=== PATIENT | female | born 1935 | race Caucasian/White ===

== ENCOUNTER 2021-07-22 00:01 | Inpatient (IN) | payer MEDICARE, MEDICAID ==
[~2021-07-22] VITALS: Ht 160 cm; Wt 46.7 kg
[~2021-07-22 00:01] MED LIST: DIXL10 PO; FLUO20CA33 PO; OMEG1CAP17 PO; VERA240C2 PO
[2021-07-22] MEDS ORDERED: ACETAMINOPHEN 325MG TABLET PO STA (00:49)
[2021-07-22] MEDS ORDERED: TETANUS, DIPHTHERIA, PERTUSSIS VAC/PF 0.5ML (>10YR OLD) IM ONE (01:00)
[2021-07-22] MEDS ORDERED: BACITRACIN ZINC OINT UDPKT TOP ONE (01:00)
[2021-07-22] MEDS ORDERED: SODIUM CHLORIDE 0.9% 1,000 ML IV ONE (01:00)
[2021-07-22] MEDS ORDERED: LIDOCAINE HCL/EPINEPHRINE 1%-EPI 1:100,000 20 ML VIAL INFIL ONE (01:00)
[2021-07-22] MEDS ORDERED: LIDOCAINE HCL/EPINEPHRINE 1%-EPI 1:100,000 10 ML VIAL IJ SCH (01:15)
[2021-07-22 01:33] LABS: HEMATOCRIT. 35.7 % (36.0-48.0); HEMOGLOBIN. 12.2 g/dL (12.0-16.0); MEAN CORPUSCULAR HEMOGLOBIN 34.3 pg (28.0-32.0); MEAN PLATELET VOLUME 7.4 fl (7.4-10.4); PLATELET 239 x1000/uL (130-400); RED BLOOD CELL COUNT 3.57 mill/uL (4.2-5.4); RED CELL DISTRIBUTION WIDTH 15.2 % (11.6-14.6)
[2021-07-22 01:42] LABS: CHLORIDE 111 mEq/L (98-107)
[2021-07-22 03:04] LABS: PARTIAL THROMBOPLASTIN TIME 26.9 sec (23.4-31.0); PROTHROMBIN TIME 10.5 sec (9.6-11.0)
[2021-07-22] MEDS ORDERED: ASPIRIN 81MG TABLET PO ONE (04:30)
[2021-07-22 07:48] LABS: PLATELET ESTIMATE NORMAL
[2021-07-22] MEDS ORDERED: ONDANSETRON HCL 4MG/2ML INJ IV PRN (09:15)
[2021-07-22 11:00] VITALS: BP 112/58
[2021-07-22 12:00] VITALS: BP 112/58
[2021-07-22 16:05] VITALS: BP_SYST 164; BP_SYST 166; BP_DIAS 69; BP_DIAS 70
[2021-07-22] MEDS: CLONIDINE 0.1MG TABLET PO PRN (17:44)
[2021-07-22 20:00] VITALS: BP 137/60
[2021-07-22] MEDS ORDERED: INSULIN LISPRO 100 UNITS/ML SUBCUT NR (21:00)
[2021-07-23] VITALS: BP 104/47
[2021-07-23 04:00] VITALS: BP 131/44
[2021-07-23 07:51] LABS: CLARITY URINE CLOUDY (CLEAR); COLOR URINE YELLOW (YELLOW); KETONES URINE TRACE (NEGATIVE); LEUKOCYTE ESTERASE URINE 1+ (NEGATIVE); NITRITE URINE POSITIVE (NEGATIVE); OCCULT BLOOD URINE 1+ (NEGATIVE); PH URINE 5.5 (4.5-8.0); PROTEIN URINE TRACE (NEGATIVE); SPECIFIC GRAVITY URINE 1.025 (1.005-1.030)
[2021-07-23 08:00] VITALS: BP 120/62
[2021-07-23] MEDS: AMLODIPINE 10MG TABLET PO SCH (09:22)
[2021-07-23] MEDS ORDERED: CEFTRIAXONE 1 G PREMIX 50 ML IV SCH (11:30)
[2021-07-23 12:00] VITALS: BP 118/79
[2021-07-23 16:00] VITALS: BP 165/70
[2021-07-23] MEDS: CEFTRIAXONE 1,000 MG in DEXTROSE 5% WATER 50 ML IV SCH (16:33)
[2021-07-23] MEDS: ACETAMINOPHEN 325MG TABLET PO PRN (16:36)
[2021-07-23] MEDS: CLONIDINE 0.1MG TABLET PO PRN (16:41)
[2021-07-23 20:00] VITALS: BP 146/106
[2021-07-24] VITALS: BP 175/75
[2021-07-24 04:00] VITALS: BP 176/82
[2021-07-24] MEDS: CLONIDINE 0.1MG TABLET PO PRN (05:44)
[2021-07-24 07:54] LABS: FOLIC ACID (FOLATE) SERUM 9.6 ng/mL (>5.38)
[2021-07-24 08:00] VITALS: BP 112/48
[2021-07-24] MEDS: HYDRALAZINE HCL 25MG TABLET PO SCH ×2 (09:30→21:00)
[2021-07-24] MEDS: ACETAMINOPHEN 325MG TABLET PO PRN ×2 (10:15→22:19)
[2021-07-24] MEDS: AMLODIPINE 10MG TABLET PO SCH (10:16)
[2021-07-24 12:00] VITALS: BP 131/56
[2021-07-24] MEDS: CEFTRIAXONE 1,000 MG in DEXTROSE 5% WATER 50 ML IV SCH (14:34)
[2021-07-24] MEDS: CYANOCOBALAMIN 1000MCG/ML VIAL IM SCH (14:56)
[2021-07-24 16:00] VITALS: BP 94/36
[2021-07-24 20:40] VITALS: BP 112/49
[2021-07-25 00:04] VITALS: BP 119/50
[2021-07-25 04:00] VITALS: BP 132/52
[2021-07-25 07:32] LABS: CHLORIDE 110 mEq/L (98-107)
[2021-07-25 08:00] VITALS: BP 129/66
[2021-07-25] MEDS: CYANOCOBALAMIN 1000MCG/ML VIAL IM SCH (09:55)
[2021-07-25] MEDS: HYDRALAZINE HCL 25MG TABLET PO SCH (09:55)
[2021-07-25] MEDS: AMLODIPINE 10MG TABLET PO SCH (09:56)
[2021-07-25] MEDS: ACETAMINOPHEN 325MG TABLET PO PRN ×2 (10:03→17:29)
[2021-07-25 12:00] VITALS: BP 138/78
[2021-07-25] MEDS ORDERED: LIDOCAINE HCL 2% JELLY 5ML TOP SCH (13:00)
[2021-07-25] MEDS: CEFTRIAXONE 1,000 MG in DEXTROSE 5% WATER 50 ML IV SCH (14:02)
[2021-07-25 16:00] VITALS: BP 131/63
[2021-07-25 20:00] VITALS: BP 150/77
[2021-07-26] VITALS: BP_SYST 142; BP_SYST 146; BP_DIAS 67; BP_DIAS 75
[2021-07-26] MEDS: HYDRALAZINE HCL 25MG TABLET PO SCH ×3 (00:12→20:48)
[2021-07-26 04:00] VITALS: BP 143/83
[2021-07-26 08:00] VITALS: BP 137/54
[2021-07-26] MEDS: CYANOCOBALAMIN 1000MCG/ML VIAL IM SCH (09:07)
[2021-07-26] MEDS: AMLODIPINE 10MG TABLET PO SCH (09:07)
[2021-07-26 11:45] VITALS: BP 120/54
[2021-07-26] MEDS: CEFTRIAXONE 1,000 MG in DEXTROSE 5% WATER 50 ML IV SCH (12:35)
[2021-07-26] MEDS: ACETAMINOPHEN 325MG TABLET PO PRN ×2 (13:44→19:16)
[2021-07-26 15:47] VITALS: BP 106/49
[2021-07-27 08:00] VITALS: BP 148/62
[2021-07-27] MEDS: CYANOCOBALAMIN 1000MCG/ML VIAL IM SCH (09:24)
[2021-07-27] MEDS: HYDRALAZINE HCL 25MG TABLET PO SCH (09:24)
[2021-07-27] MEDS: AMLODIPINE 10MG TABLET PO SCH (09:25)
[2021-07-27 12:00] VITALS: BP 138/45
[2021-07-27 16:00] VITALS: BP 130/59
[2021-07-27 16:15] VITALS: BP 130/59
[2021-07-30 14:12] LABS: 25-HYDROXY VITAMIN D3 22 ng/mL (.)
[2021-08-06] MEDS ORDERED: CYANOCOBALAMIN 1000MCG/ML VIAL IM SCH (09:00)
== END 2021-07-27 18:40 | disposition hospice, home (50) | DRG 40 ==
LOC: ER 00:11 → EDUNIT# 00:11 → MICUSO 04:26 → 7EST 10:52
PROVIDERS: ADMIT Internal Medicine; ATTEND Internal Medicine
PROC: 0HQ0XZZ Repair Scalp Skin, External Approach (ICD-10-PCS; principal; 2021-07-22)
PROC: 0JB70ZZ Excision of Back Subcutaneous Tissue and Fascia, Open Approach (ICD-10-PCS; 2021-07-26)
DX: G90.8 Other disorders of autonomic nervous system (principal); L89.153 Pressure ulcer of sacral region, stage 3; G93.41 Metabolic encephalopathy; N39.0 Urinary tract infection, site not specified; N17.9 Acute kidney failure, unspecified; I69.354 Hemiplegia and hemiparesis following cerebral infarction affecting left non-dominant side; E44.1 Mild protein-calorie malnutrition; Z68.1 Body mass index [BMI] 19.9 or less, adult; I11.0 Hypertensive heart disease with heart failure; I50.9 Heart failure, unspecified; I16.0 Hypertensive urgency; R53.81 Other malaise; E53.8 Deficiency of other specified B group vitamins; D64.9 Anemia, unspecified; S01.01XA Laceration without foreign body of scalp, initial encounter; W18.39XA Other fall on same level, initial encounter; Y93.89 Activity, other specified; Y92.89 Other specified places as the place of occurrence of the external cause; Y99.8 Other external cause status
CPT/HCPCS: 36415; 70551; 71045; 73521; 73562; 80048; 80053; 80061; 81003; 82140; 82306; 82607; 82746; 83036; 83880; 84134; 84443; 84484; 85025; 86850; 86900; 87077; 87186; 90715; 93005; 93306; 97110; 97162; 97166; 97530; 99285; C1893; J0696; J3420; J3490; J7030; J7060